=== PATIENT | female | born 1945 | race Caucasian/White ===

== ENCOUNTER → 2017-03-19 | Outpatient (CLI) | payer MEDICARE, BC ==
[~2017-03-19] MED LIST: CALC-494 PO; CITA10SO5 PO; CITA20TA9 PO; FA/M1TAB3 PO; IMAT400T2 PO; LEVO100T12 PO; LEVO75TA57 PO; METF-200 PO
--- NOTE | 2017-03-19 16:35 | DI ---
INDICATION: ITS.REASON: Z01.89 ENCOUNTER FOR OTHER SPECIFIED SPECIAL EXAMS PROCEDURE: CHEST 2-VIEWS UPRIGHT (PA \T\ LAT) Encounter: Initial COMPARISON: None FINDINGS: The lungs are clear without evidence of focal abnormal airspace opacity. There is no pleural effusion or pneumothorax. 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 No definite paraspinal hematoma. There is mild tortuosity of the descending thoracic aorta. Trachea is midline. The heart size, mediastinal contours and pulmonary vascularity are within normal limits. There is no significant skeletal abnormality. IMPRESSION: No acute cardiopulmonary disease. .
== END ==
LOC: IMA 14:52
PROVIDERS: ATTEND Family Medicine
DX: Z01.89 Encounter for other specified special examinations (principal)

== ENCOUNTER 2017-04-17 05:47 | Inpatient (IN) ==
[2017-04-17] MEDS ORDERED: ACETAMINOPHEN 500 MG TABLET PO ONE (05:54)
[2017-04-17] MEDS ORDERED: EPINEPHrine 0.25 MG, BUPIVACAINE 0.25% PF 75 ML, MORPHINE SULFATE 15 MG, KETOROLAC INJ ... IJ ONE (05:54)
[2017-04-17] MEDS ORDERED: LIDOCAINE 1% (10mg/ml) 10mL MDV SQ ONE (05:54)
[2017-04-17] MEDS ORDERED: SALINE FLUSH 10ml SYRINGE IVF PRN (05:54)
[2017-04-17] MEDS ORDERED: MELOXICAM 15 MG TABLET PO ONE (05:54)
[2017-04-17] MEDS ORDERED: FAMOTIDINE PREMIX 20 MG/50 ML BAG IV ONE (05:54)
[2017-04-17] MEDS ORDERED: TRANEXAMIC ACID 1,000 MG in NS 100 ML IV ONE (05:54)
[2017-04-17] MEDS ORDERED: CLINDAMYCIN PREMIX 900 MG/50 ML BAG IV ONE (05:54)
[2017-04-17] MEDS ORDERED: NOZIN NASAL SWAB NAS ONE ×3 (05:54→09:06)
[2017-04-17] MEDS ORDERED: METOCLOPRAMIDE 10mg/2ml INJECTION IVP ONE (05:54)
[2017-04-17] MEDS ORDERED: VANCOMYCIN 1,000 MG INJECTION ONE (06:19)
[2017-04-17] MEDS: NS 1,000 ML IV SCH ×5 (06:31→19:46)
[2017-04-17] MEDS ORDERED: LIDOCAINE 1% (10mg/ml) 2mL INJ PF SDV IM ONE (06:40)
--- NOTE | 2017-04-17 06:53 | Anesthesia Preoperative Report ---
Anesthesia Preoperative Record - Date and Time Date: 04/17/17 NPO Since Date: 04/16/17 NPO Since Time: 23:00 Allergies/Adverse Reactions: Allergies Allergy/AdvReac Type Severity Reaction Status Date / Time codeine Allergy Unknown RASH Verified 04/17/17 06:13 Penicillins Allergy Unknown SWELLING Verified 04/17/17 06:13 Sulfa (Sulfonamide Allergy Unknown RASH Verified 04/17/17 06:13 Antibiotics) - Vital Signs Vital Signs: Temp Pulse Resp BP Pulse Ox 97.7 F 84 14 188/90 H 97 04/17/17 06:05 04/17/17 06:05 04/17/17 06:05 04/17/17 06:05 04/17/17 06:05 Height and Weight: Height 1.56 m Weight 74.7 kg Body Mass Index 30.6 - Medications Inpatient Medications: Current Medications Sodium Chloride (Normal Saline) 1,000 mls @ 50 mls/hr IV .Q20H MAGALY Last Admin: 04/17/17 06:31 Dose: 50 mls/hr Isopropyl Alcohol (Nozin Nasal Swab) 1 each MY 0600,1400,2200 MAGALY Sodium Chloride (Iv Flush) 10 - 80 ml IVF PRN PRN PRN Reason: Flushing Home Medications: Home Medications Medication Instructions Recorded Confirmed Type Metformin HCl 500 mg PO BID #0 12/15/11 04/17/17 History Imatinib Mesylate [Gleevec] 1 tab PO HS #0 tab 11/01/16 04/17/17 History Citalopram Hydrobromide 1 tab PO DAILY #0 03/26/17 04/17/17 History [Citalopram HBr] Calcium Carb, Citrate/Vit D3 1 each PO DAILY 04/12/17 04/17/17 History [Citracal + D ER Tablet] Levothyroxine Sodium 100 mcg PO DAILY 04/12/17 04/17/17 History Multivitamin/Iron/Folic Acid 1 each PO DAILY 04/12/17 04/17/17 History [Centrum Complete Multivit Tab] - Medical History Gastrointestional: Reports: Morbid Obesity (obese) Renal/Endocrine: Reports: Diabetes Mellitus Type 1, Thyroid Disease (hypo) - Surgical History HEENT Surgeries: Reports: Tonsillectomy Musculoskeletal Surgery/Tx: Reports: Orthopedic Surgery (ORIF Lt elbow) Reproductive Surgery/Treatment: Reports: Section, Other (breast biopsy- 1994) - Social History Smoking Status: Never smoker Hx Chewing Tobacco Use: No Second Hand Exposure: No Substance Use Type: does not use Alcohol Intake Frequency: does not drink - Physical Exam Respiratory Exam: Present: lungs clear Cardiovascular Exam: Present: regular rate and rhythm - Airway Assessment Mallampati Score: III TMD: 3 Fingerbreadths Neck Extension: fair Teeth: partial lower dentures Overall Assessment: no airway concerns - ASA ASA Score: 2 - Plan Plan: SAB vs. GA with adductor canal block Anesthesia: Neuroaxial Regional/Trunk Block: Spinal Peripheral Nerve Block: Saphenous-Left - Discussion Discussion: Discussed risks/options/alternatives of anesthesia and questions answered. Patient consents. Nursing pain assessment noted. Attestation Statement: Prior to the delivery of any anesthetic medication, I examined the patient, developed the plan, obtained the patient's consent and discussed the risk and benefits of the procedure with the patient/guardian.
[2017-04-17] MEDS ORDERED: FentaNYL 100 MCG/2 ML INJECTION ONE (06:59)
[2017-04-17] MEDS ORDERED: MIDAZOLAM 2mg/2ml INJECTION ONE (06:59)
[2017-04-17] MEDS ORDERED: PROPOFOL 500 MG/50 ML VIAL IV ONE (07:00)
[2017-04-17] MEDS ORDERED: EPHEDRINE 50mg/ml INJECTION ONE (07:36)
[2017-04-17] MEDS ORDERED: ROPIVACAINE 0.5% (5mg/ml) 30ml INJ ONE (07:38)
[2017-04-17] MEDS ORDERED: VANCOMYCIN 1,000 MG INJECTION IAR ONE (08:28)
[2017-04-17] MEDS ORDERED: PROPOFOL 20 ML ONE (08:43)
--- NOTE | 2017-04-17 09:04 | History & Physical Update ---
- History and Physical Update Date: 04/17/17 Update: I evaluated this patient and found no changes in the history and clinical exam findings. The treatment plan and recommendations are also unchanged from the previous documentation.
[2017-04-17] MEDS ORDERED: NAPROXEN 220 MG TABLET PO PRN (09:06)
[2017-04-17] MEDS ORDERED: ONDANSETRON 4 MG/2 ML INJECTION IVP PRN (09:06)
[2017-04-17] MEDS ORDERED: DiphenhydrAMINE 25 MG CAPSULE PO PRN (09:06)
[2017-04-17] MEDS ORDERED: LORazepam 1 MG TABLET PO PRN (09:06)
[2017-04-17] MEDS ORDERED: DiphenhydrAMINE 50 MG/ML INJECTION IVP PRN (09:06)
--- NOTE | 2017-04-17 09:31 | Anesthesia Procedure Note ---
Peripheral Nerve Blockade - Procedure Physician: Vin Noble MD Date: 04/17/17 Discussion: Discussed risks/options/alternatives of anesthesia and questions answered. Patient consents. Nursing pain assessment noted. Block Start: 09:20 Block Stop: 09:25 Blocked Employed: Adductor Canal, Single Injection Indication: Post-Operative Pain Approach: Left Side Confirmed Position: Supine Patient: Consent, Risks/Benefits Discussed, Informed, Post Block Act. Discussed IV Sedation: No Sedation: Awake Initial Vital Signs: Temperature 97.7 F 04/17/17 06:05 Temperature Source Oral 04/17/17 06:05 Pulse Rate 84 04/17/17 06:05 Respiratory Rate 14 04/17/17 06:05 Blood Pressure 188/90 H 04/17/17 06:05 Blood Pressure Mean 122 04/17/17 06:05 Pulse Oximetry 97 04/17/17 06:05 Oxygen Delivery Method 04/17/17 06:05 Post Vital Signs: Temp Pulse Resp BP Pulse Ox 97.7 F 80 16 154/70 H 97 04/17/17 06:05 04/17/17 06:50 04/17/17 06:50 04/17/17 06:50 04/17/17 06:05 Prep: Chlorhexadine/ETOH, Sterile Technique Ultrasound Used?: Yes - Nerve Simulator Needle Depth: 4 Muscle Response: No Paresthesia/Pain: None - Injectate Ropivacaine: 5 (5 mg) Ropivacaine: 15 (15 ml) Was Epi 1:200,000 Used?: No Injection: Injection made incrementally with constant monitoring and aspiration every ml
--- NOTE | 2017-04-17 09:53 | Anesthesia Postoperative Note ---
- Date and Time Date: 04/17/17 Time: 09:52 - Status Patient Participated in Evaluation: Patient Participated in Person Vital Signs: Temp Pulse Resp BP Pulse Ox 97.1 F 78 19 111/58 93 04/17/17 09:17 04/17/17 09:45 04/17/17 09:45 04/17/17 09:45 04/17/17 09:45 Respiratory Function: Airway Patent, Regular Respirations Cardiovascular Function: Regular Pulse EKG Rhythm: Normal Sinus Rhythm Mental Status: Alert and Oriented Pain Intensity: 0 Hydration: IV Infusing Complications During Recover: None Apparent Post Anesthesia Care Notes: moves bilat feet - Follow-Up Instructions Instructions: Per Surgeon
--- NOTE | 2017-04-17 10:11 | Operative Note ---
- Procedure Date of Admission: 04/17/17 Side: left Preoperative Diagnosis: knee primary DJD Postoperative Diagnosis: Same as preoperative diagnosis. Operation: total knee arthroplasty (left) Surgeon: Maykel Noble MD Perianesthesia Manager: YVETTE Long Complications: None. Regional/Trunk Block: Spinal Peripheral Nerve Block: Saphenous-Left Estimated Blood Loss: See Anesthesia Record. Fluids: Please see Anesthesia Record. Description of Procedure: Mrs. Chow and the left knee were identified and marked in the preoperative holding area. She was brought back to the operating suite and placed supine on the operating table. Spinal anesthetic was administered. The operative lower extremity was prepped and draped in a sterile fashion. Timeout was performed. She had a varus deformity which was fixed in a slight hyperextension. An anterior midline incision followed by medial parapatellar arthrotomy was performed. The tourniquet was not used until cementing. Hemostasis was obtained with electrocautery. The patella was resurfaced to a size 29. A distal femoral osteotomy was then performed in 5 of valgus using intramedullary guide. The femur was sized at a 3 and rotation set using the epicondylar axis. Distal femoral cuts were performed with a 4-in-1 cutting block. A proximal tibial cut was then made perpendicular to its long axis using an extramedullary guide. At this point remaining meniscus and osteophytes were removed and joint cocktail was injected throughout soft tissue. Trial components were placed with a 9 mm spacer. This allowed for full extension and flexion and the patella tracked well. The leg was then exsanguinated and the tourniquet inflated to 250 mmHg. The tibia was then stamped at a size 3 at the proper rotation. The bone was then prepared for cementing and [employer] components were cemented into place and allowed to cure in extension. The tourniquet was then let down and hemostasis obtained with electrocautery. Betadine solution was used during the curing period for 3 minutes. Her distal medial capsule avulsed during retraction so this point was repaired with #1 Vicryl. 1 g of vancomycin powder was placed into the joint before the capsulotomy was repaired with #1 Vicryl. I then left my golf player assistant close the subcutaneous tissue and skin with 2-0 Vicryl and Monocryl. Dermabond was used on the skin. The drapes were then removed and she was taken to recovery room under the care of anesthesia.
--- NOTE | 2017-04-17 10:23 | XRay Report ---
Indication: postoperative image left knee replacement PROCEDURE: XR knee LT 2V: Encounter: Initial Comparison: Left knee radiographs dated February 04, 2016 Findings: Postoperative changes of left total knee replacement are seen. There is expected postoperative subcutaneous gas. No evidence of hardware failure or acute fracture. No retained radiopaque surgical instruments or sponges. Overlying material causing artifact. Impression: New left total knee prosthesis without evidence of immediate complication. .
[2017-04-17] MEDS: NOZIN NASAL SWAB NAS SCH ×3 (11:49→21:17)
[2017-04-17] MEDS: ACETAMINOPHEN 325 MG TABLET PO SCH ×3 (13:39→21:16)
[2017-04-17] MEDS: CLINDAMYCIN PREMIX 900 MG/50 ML BAG IV SCH ×2 (13:42→19:51)
[2017-04-17] MEDS ORDERED: NOZIN NASAL SWAB NAS SCH (14:00)
[2017-04-17] MEDS: ASPIRIN *EC* 325 MG TABLET PO SCH (21:17)
[2017-04-17] MEDS ORDERED: GLEEVEC 400 MG PO SCH (22:00)
[2017-04-17] MEDS ORDERED: SENNOSIDES 8.6 MG TABLET PO SCH (22:00)
[2017-04-17] MEDS: DOCUSATE SODIUM 100 MG CAPSULE PO SCH (22:27)
[2017-04-18] MEDS: CLINDAMYCIN PREMIX 900 MG/50 ML BAG IV SCH (01:45)
[2017-04-18] MEDS: NOZIN NASAL SWAB NAS SCH ×2 (06:08→13:55)
[2017-04-18] MEDS: TRAMADOL 50 MG TABLET PO PRN ×2 (06:14→16:11)
[2017-04-18] MEDS ORDERED: LEVOTHYROXINE 100 MCG TABLET PO SCH (06:30)
--- NOTE | 2017-04-18 07:47 | Orthopedic Progress Note ---
Date: Subjective/Severity of Illness: Main issue is nausea this morning. She had a tramadol on an empty stomach. She is eating some crackers at the time of my visit. Pain is controlled. No CP or SOB. Orthopedic Objective Vital signs: Temp Pulse Resp BP Pulse Ox 97.8 F 81 18 122/65 98 04/18/17 07:40 04/18/17 07:40 04/18/17 07:40 04/18/17 07:40 04/18/17 07:40 Height and Weight: Height 5 ft 1.5 in Weight 77.7 kg Body Mass Index 30.6 - Constitutional General Appearance: Present: no acute distress - Respiratory Exam Present: non-labored - Cardiovascular Exam Present: pedal pulses intact - Extremities Exam Absent: calf tenderness - Neurological Exam Present: no deficits - Psychiatric Exam Present: alert - Wound Management Left Knee Wound Type: Surgical Incision Dressing Status: Dry & Intact Primary Dressing: Mepilex - Labs Result Diagrams: 04/18/17 04:14 04/18/17 04:14 Abnormal lab results 04/18/17 04/18/17 Range/Units 04:14 04:14 RBC 2.63 L (4.00-5.20) M/MM3 Hgb 9.0 L (12-16) GM/DL Hct 27.8 L (36-46) % MCV 105.7 H (80-100) UM3 MCH 34.2 H (26-34) UUG RDW Std Deviation 52.2 H (36.9-50.2) FL Glucose 139 H (65-110) MG/DL Calcium 8.3 L D (8.4-10.2) MG/DL H & H 04/18/17 Range/Units 04:14 Hgb 9.0 L (12-16) GM/DL Hct 27.8 L (36-46) % Orthopedic Assessment and Plan (1) Total knee replacement status Status: Acute Qualifiers: Laterality: left Qualified Code(s): Z96.652 - Presence of left artificial knee joint Assessment and Plan: - Doing well overall - Continue current pain management - Continue PT/OT - Continue SCDs and chemoprophylaxis for DVT - Plan on D/C later today pending therapy Hospital Course Summary Disclaimer: The visit summary below is not to be considered part of the above Progress Note.
[2017-04-18] MEDS: ACETAMINOPHEN 325 MG TABLET PO SCH ×3 (08:55→17:01)
[2017-04-18] MEDS: DOCUSATE SODIUM 100 MG CAPSULE PO SCH (08:56)
[2017-04-18] MEDS: ASPIRIN *EC* 325 MG TABLET PO SCH (08:56)
[2017-04-18] MEDS ORDERED: POLYETHYL GLYCOL 3350 17gm PACKET PO SCH (09:00)
[2017-04-18] MEDS ORDERED: CITALOPRAM 20 MG TABLET PO SCH (09:00)
[2017-04-18] MEDS ORDERED: SENNOSIDES 8.6 MG TABLET PO PRN (09:06)
[2017-04-18] MEDS ORDERED: SALINE FLUSH 10ml SYRINGE IVF PRN (10:07)
[2017-04-18] MEDS: NS 1,000 ML IV SCH (11:24)
--- NOTE | 2017-04-18 16:08 | Discharge Summary ---
Discharge Plan - Med Rec/Dispo Referrals/Follow Up: Vin Noble MD [Physician] - 05/09/17 2:30 pm [place] Instructions: [facility] Aide General Instructions, [facility] Ortho Postop Instructions Additional Instructions: [facility] on 04/20/2017 at 1:30pm for physical therapy eval. Prescriptions: New Aspirin *EC* [Ecotrin] 325 mg PO BID Docusate Sodium [Colace] 100 mg PO BID cap Milk of Magnesia [Mom] 30 ml PO DAILY Naproxen Sodium [All Day Relief] 440 mg PO BID PRN PRN Reason: Pain Tramadol [Ultram] 50 - 100 mg PO Q4H PRN #30 PRN Reason: Pain Acetaminophen [Tylenol] 650 mg PO QID Peg 3350 17 G Packet [Miralax] 17 gm PO DAILY packet Continue Citalopram Hydrobromide [Citalopram HBr] 1 tab PO DAILY #0 Multivitamin/Iron/Folic Acid [Centrum Complete Multivit Tab] 1 each PO DAILY Metformin HCl 500 mg PO BID #0 Imatinib Mesylate [Gleevec] 1 tab PO HS #0 tab Levothyroxine Sodium 100 mcg PO DAILY Calcium Carb, Citrate/Vit D3 [Citracal + D ER Tablet] 1 each PO DAILY - Disposition 01 Discharged Home, Self-Care
--- NOTE | 2017-04-18 16:11 | Discharge Summary ---
Orthopedic Discharge Info Date of admission: 04/17/17 05:47 Anticipated date of discharge: 04/18/17 Primary care physician: Claude Nunez MD Attending Physician: Vin Noble MD Consults: 04/17/17 05:54 Consult to Anesthesiology [CONS] Routine Consulting Provider: YVETTE Miller Reason For Exam: Preoperative Assessment 04/17/17 09:06 Case Management Consult [CONS] Routine Reason For Exam: Discharge Planning DME-Walker [CONS] Routine Height: 5 ft 1.5 in Weight: 164 lb 10.965 oz Comment: change dressing in 2 weeks Total Joint Outpatient Therapy [CONS] Routine Comment: change dressing in 2 weeks - Discharge Diagnosis (1) Total knee replacement status Qualifiers: Laterality: left Qualified Code(s): Z96.652 - Presence of left artificial knee joint Status: Acute - Procedures Procedures: Lt TKA - Laboratory Result Diagrams: 04/18/17 04:14 04/18/17 04:14 Laboratory: Abnormal lab results 04/18/17 04/18/17 Range/Units 04:14 04:14 RBC 2.63 L (4.00-5.20) M/MM3 Hgb 9.0 L (12-16) GM/DL Hct 27.8 L (36-46) % MCV 105.7 H (80-100) UM3 MCH 34.2 H (26-34) UUG RDW Std Deviation 52.2 H (36.9-50.2) FL Glucose 139 H (65-110) MG/DL Calcium 8.3 L D (8.4-10.2) MG/DL H & H 04/18/17 Range/Units 04:14 Hgb 9.0 L (12-16) GM/DL Hct 27.8 L (36-46) % Orthopedic Discharge HPI - HPI Comments This patient was admitted for elective surgical tx of end stage degenerative joint disease that failed to respond to conservative treatment. Further details of this is found in the admission H&P. Orthopedic Hospital Course Hospital course: 04/18/17 16:09 After appropriate preoperative clearance and signing of operative consent, the patient was given IV antibiotics, according to orthopedic protocol. The patient was taken to the operating room and underwent elective left total knee arthroplasty. Following surgery, antibiotics were discontinued less than 24 hours according to joint protocol. Aspirin was initiated and SCDs added for DVT prevention. The dressing was clean, dry, and intact. Pain control was obtained via multimodal approach. Bowel motivation addressed with scheduled and PRN medications. Early mobilization was initiated through PT services. Pt developed some nausea with her first dose of Ultram on an empty stomach, but this gradually resolved. Discharge arrangements made by a collaborative effort between the patient and Case Management. Follow-up is scheduled in 2-3 weeks. Discharge instructions given by orthopedic providers and nursing staff at discharge. Discharge condition was good. Ongoing care required?: No Discharge Plan - Med Rec/Dispo Referrals/Follow Up: Vin Noble MD [Physician] - 05/09/17 2:30 pm [place] Instructions: [facility] General Instructions, [facility] Ortho Postop Instructions Additional Instructions: [facility] on 04/20/2017 at 1:30pm for physical therapy eval. Prescriptions: New Aspirin *EC* [Ecotrin] 325 mg PO BID Docusate Sodium [Colace] 100 mg PO BID cap Milk of Magnesia [Mom] 30 ml PO DAILY Naproxen Sodium [All Day Relief] 440 mg PO BID PRN PRN Reason: Pain Tramadol [Ultram] 50 - 100 mg PO Q4H PRN #30 PRN Reason: Pain Acetaminophen [Tylenol] 650 mg PO QID Peg 3350 17 G Packet [Miralax] 17 gm PO DAILY packet Continue Citalopram Hydrobromide [Citalopram HBr] 1 tab PO DAILY #0 Multivitamin/Iron/Folic Acid [Centrum Complete Multivit Tab] 1 each PO DAILY Metformin HCl 500 mg PO BID #0 Imatinib Mesylate [Gleevec] 1 tab PO HS #0 tab Levothyroxine Sodium 100 mcg PO DAILY Calcium Carb, Citrate/Vit D3 [Citracal + D ER Tablet] 1 each PO DAILY - Disposition 01 Discharged Home, Self-Care
[2017-04-18] MEDS ORDERED: METFORMIN 500 MG TABLET PO SCH (17:30)
[2017-04-19] MEDS ORDERED: BISACODYL 10 MG SUPPOSITORY RECTALLY SCH (20:00)
== END 2017-04-18 18:35 | disposition home or self-care (01) | DRG 470 ==
LOC: SRG 05:47
PROVIDERS: ADMIT Orthopaedic Surgery; ATTEND Orthopaedic Surgery